=== PATIENT | male | born 1975 | race Hispanic/Latino ===

== ENCOUNTER 2019-01-25 02:35 | Emergency (ER) | payer OTHER ==
[2019-01-25] MEDS ORDERED: PEPCID IV ONE (02:45)
[2019-01-25] MEDS ORDERED: SOLU-Medrol IV ONE (02:45)
[2019-01-25] MEDS ORDERED: BENADRYL IV ONE (02:45)
--- NOTE | 2019-01-25 02:46 | Emergency Department Report ---
ED Allergic Reaction HPI - General Chief complaint: Allergic Reaction Stated complaint: ALLERGIC REACTION Time Seen by Provider: 01/25/19 02:44 Source: patient Mode of arrival: Ambulatory Limitations: No Limitations - History of Present Illness Initial Comments: Patient is a 43-year-old male that presents emergency room with lower lip swelling and rash/itching. Patient states his symptoms started about 7 PM. Patient states he took pineapple juice and began having the symptoms. Patient denies shortness of breath. Patient denies difficulty breathing. MD Complaint: allergic reaction, hives, facial swelling -: Sudden Symptoms: facial swelling, lip swelling, difficulty swallowing Severity: mild Treatment Prior to Arrival: none Previous Allergy History: prior ED visit(s) - Related Data Previous Rx's Medication Instructions Recorded Last Taken Type methylPREDNISolone [Medrol 4MG 4 mg PO DAILY 6 Days #1 tab.ds.pk 01/25/19 Unknown Rx DOSEPAK (21 tabs)] Allergies Allergy/AdvReac Type Severity Reaction Status Date / Time Horseraddish Allergy Hives Uncoded 01/25/19 02:40 Spicy Sauce Allergy Shortness Uncoded 01/25/19 02:41 of Breath Worsabi Allergy Hives Uncoded 01/25/19 02:41 ED Review of Systems ROS: Stated complaint: ALLERGIC REACTION Other details as noted in HPI Constitutional: denies: chills, fever Eyes: denies: eye pain, eye discharge, vision change ENT: denies: ear pain, throat pain Respiratory: denies: cough, shortness of breath, wheezing Cardiovascular: denies: chest pain, palpitations Endocrine: no symptoms reported Gastrointestinal: denies: abdominal pain, nausea, diarrhea Genitourinary: denies: urgency, dysuria Musculoskeletal: denies: back pain, joint swelling, arthralgia Skin: rash, pruritus. denies: lesions Neurological: denies: headache, weakness, paresthesias Psychiatric: denies: anxiety, depression Hematological/Lymphatic: denies: easy bleeding, easy bruising ED Past Medical Hx - Past Medical History Previous Medical History?: Yes Hx Hypertension: Yes - Surgical History Past Surgical History?: No - Family History Family history: no significant - Social History Smoking Status: Never Smoker Substance Use Type: None - Medications Home Medications: Home Medications Medication Instructions Recorded Confirmed Last Taken Type methylPREDNISolone [Medrol 4MG 4 mg PO DAILY 6 Days #1 tab.ds.pk 01/25/19 Unknown Rx DOSEPAK (21 tabs)] ED Physical Exam - General Limitations: No Limitations General appearance: alert, in no apparent distress - Head Head exam: Present: atraumatic, normocephalic - Eye Eye exam: Present: normal appearance, PERRL Pupils: Present: normal accommodation - ENT ENT exam: Present: mucous membranes moist, other (lower lip swelling noted) - Neck Neck exam: Present: normal inspection - Respiratory Respiratory exam: Present: normal lung sounds bilaterally. Absent: respiratory distress, wheezes, rales - Cardiovascular Cardiovascular Exam: Present: regular rate, normal rhythm. Absent: systolic murmur, diastolic murmur, rubs, gallop - GI/Abdominal GI/Abdominal exam: Present: soft, normal bowel sounds. Absent: distended, tenderness, guarding - Rectal Rectal exam: Present: deferred - Extremities Exam Extremities exam: Present: normal inspection - Back Exam Back exam: Present: normal inspection - Neurological Exam Neurological exam: Present: alert, oriented X3 - Psychiatric Psychiatric exam: Present: normal affect, normal mood - Skin Skin exam: Present: warm, dry, intact, normal color, rash, urticaria ED Course Vital Signs 01/25/19 01/25/19 01/25/19 02:38 02:46 03:00 Temperature 98.2 F Pulse Rate 82 94 H 90 Respiratory 20 18 23 Rate Blood Pressure 160/90 139/88 O2 Sat by Pulse 98 96 94 Oximetry 01/25/19 01/25/19 01/25/19 03:15 03:30 03:45 Temperature Pulse Rate 80 76 77 Respiratory 22 22 21 Rate Blood Pressure 129/79 122/81 132/84 O2 Sat by Pulse 93 92 93 Oximetry 01/25/19 01/25/19 01/25/19 04:00 04:15 04:30 Temperature Pulse Rate 82 72 70 Respiratory 18 18 22 Rate Blood Pressure 130/87 130/83 120/80 O2 Sat by Pulse 91 94 94 Oximetry - Reevaluation(s) Reevaluation #1: Patient states he is feeling better. Patient states his symptoms have resolved. Patient's bottom lip is almost back to normal size. Patient's rash is resolved. Patient is stable discharge. Patient was discharged home. Patient given discharge instructions. Patient voiced understanding of discharge instructed. 01/25/19 04:17 ED Medical Decision Making - Medical Decision Making Patient is a 43-year-old male that presented to the emergency room for allergic reaction and rash. Patient noted to have a urticarial rash and swollen bottom lip. Patient never had any difficulties breathing. Patient was given medications and responded well to therapy. Patient's symptoms will resolve prior to discharge. Patient given a Medrol Dosepak at discharge. Patient stable for discharge. Patient given discharge instructions. - Differential Diagnosis allergic reaction. Rash. Urticaria. Food allergy Critical care attestation.: If time is entered above; I have spent that time in minutes in the direct care of this critically ill patient, excluding procedure time. ED Disposition Clinical Impression: Lip swelling, Rash, Hives Allergic reaction Qualifiers: Encounter type: initial encounter Qualified Code(s): T78.40XA - Allergy, unspecified, initial encounter Disposition: TO HOME OR SELFCARE Is pt being admited?: No Does the pt Need Aspirin: No Condition: Stable Instructions: Urticaria (ED), Food Allergy (ED), Allergies (ED) Additional Instructions: Patient to follow-up with primary care in 2-3 days. Patient to take Tylenol or ibuprofen when necessary for pain. Patient to follow-up with financial planning analyst in 2-3 days. Patient to return to ER if condition worsens. She is to avoid pineapples and other foods on his allergy list. Patient to take meds as directed. Patient to increase water. Patient to rest. Patient to continue all meds. Patient take Benadryl and Zyrtec when necessary Prescriptions: methylPREDNISolone [Medrol 4MG DOSEPAK (21 tabs)] 4 mg PO DAILY 6 Days #1 tab.ds.pk Referrals: ELPIDIO RODRÍGUEZ [Other] - 3-5 Days Time of Disposition: 04:20
[2019-01-25 04:43] VITALS: BP 120/80
== END 2019-01-25 04:49 | disposition home or self-care (01) ==
LOC: ED 02:35
DX: T78.40XA Allergy, unspecified, initial encounter (principal); I10 Essential (primary) hypertension; Z91.018 Allergy to other foods; X58.XXXA Exposure to other specified factors, initial encounter
CPT/HCPCS: 96374; 96375; 99282; J1200; J2930